=== PATIENT | female | born 1975 | race Caucasian/White ===

== ENCOUNTER → 2018-07-08 13:56 | Outpatient (CLI) | payer OTHER | END | disposition home or self-care (01) | LOC: D.MRI 13:56 | DX: M54.5 Low back pain (principal); M54.30 Sciatica, unspecified side; M54.10 Radiculopathy, site unspecified; E06.9 Thyroiditis, unspecified ==

== ENCOUNTER → 2018-07-13 19:36 | Outpatient (CLI) | payer OTHER | END | disposition home or self-care (01) | LOC: D.MAMMO 14:15 | DX: Z12.31 Encounter for screening mammogram for malignant neoplasm of breast (principal) ==